=== PATIENT | male | born 1955 | race Caucasian/White ===

== ENCOUNTER 2019-08-20 18:51 | Emergency (ER) | payer MEDICARE, BC ==
[2019-08-20] MEDS ORDERED: Acetaminophen 325 MG Tab PO ONE (19:30)
[2019-08-20] MEDS ORDERED: Lidocaine 1% with EPINEPHrine 1:100,000 20 ML MDV ONE (19:40)
[2019-08-20] MEDS ORDERED: Lidocaine 1% with EPINEPHrine 1:100,000 20 ML MDV INJECT ONE (19:42)
[2019-08-20] MEDS ORDERED: Bacitracin/Neomycin/Polymyxin B Oint 0.9 GM U/D Packet ONE (19:47)
[2019-08-20] MEDS ORDERED: Bacitracin/Neomycin/Polymyxin B Oint 0.9 GM U/D Packet TOP ONE (19:49)
--- NOTE | 2019-08-20 19:58 | EDM.PDOC ---
ED HPI GENERAL MEDICAL PROBLEM - General Chief Complaint: Laceration Stated Complaint: GASH IN FOREHEAD Time Seen by Provider: 08/20/19 19:53 Source of Information: Reports: Patient History Limitations: Reports: No Limitations - History of Present Illness INITIAL COMMENTS - FREE TEXT/NARRATIVE: Patient is a 64-year-old gentleman who presents to emergency department this evening with a complaint of laceration to forehead. Patient states that he was [place] today, and accidentally struck head with a metal end of [place] cord. Patient denies any loss of consciousness, neck discomfort, or any other discomfort. Onset: Today Onset Time: 15:30 Duration: Hour(s): Location: Reports: Face Severity: Mild Improves with: Reports: None Worsens with: Reports: None Context: Reports: Trauma Associated Symptoms: Reports: No Other Symptoms Headache Pain Score (Numeric/FACES): 2 - Related Data Allergies Allergy/AdvReac Type Severity Reaction Status Date / Time saccharin Allergy Swollen Verified 08/20/19 19:10 Tongue Home Meds: Home Meds Omeprazole 40 mg PO DAILY 08/20/19 [History] Past Medical History HEENT History: Reports: Hard of Hearing, Impaired Vision Cardiovascular History: Reports: None Respiratory History: Reports: None Gastrointestinal History: Reports: None Genitourinary History: Reports: None Musculoskeletal History: Reports: None Neurological History: Reports: None Psychiatric History: Reports: None Endocrine/Metabolic History: Reports: None Hematologic History: Reports: None Immunologic History: Reports: None Oncologic (Cancer) History: Reports: None Dermatologic History: Reports: None - Past Surgical History HEENT Surgical History: Reports: None GI Surgical History: Reports: None Endocrine Surgical History: Reports: None Neurological Surgical History: Reports: None Musculoskeletal Surgical History: Reports: Carpal Tunnel Social & Family History - Tobacco Use Smoking Status *Q: Never Smoker Second Hand Smoke Exposure: Yes - Caffeine Use Caffeine Use: Reports: Soda - Recreational Drug Use Recreational Drug Use: No ED ROS GENERAL - Review of Systems Review Of Systems: Comprehensive ROS is negative, except as noted in HPI. Constitutional: Reports: No Symptoms HEENT: Reports: No Symptoms Respiratory: Reports: No Symptoms Cardiovascular: Reports: No Symptoms Endocrine: Reports: No Symptoms GI/Abdominal: Reports: No Symptoms : Reports: No Symptoms Musculoskeletal: Reports: No Symptoms Skin: Reports: Wound (Jackson a laceration to right superior forehead) Neurological: Reports: No Symptoms Psychiatric: Reports: No Symptoms Hematologic/Lymphatic: Reports: No Symptoms Immunologic: Reports: No Symptoms ED EXAM, SKIN/RASH Exam: See Below Exam Limited By: No Limitations General Appearance: Alert, WD/WN, No Apparent Distress Eye Exam: Bilateral Eye: Normal Inspection Nose: Normal Inspection, No Blood Throat/Mouth: Normal Inspection, Normal Oropharynx, No Airway Compromise Head: Atraumatic, Normocephalic Neck: Normal Inspection, Supple, Non-Tender Respiratory/Chest: No Respiratory Distress Back Exam: Normal Inspection Extremities: Normal Inspection Neurological: Alert, Oriented, CN II-XII Intact, Normal Cognition, No Motor/ Sensory Deficits Psychiatric: Normal Affect, Normal Mood Skin: Warm, Dry, Normal Color, No Rash, Wound/Incision (2 cm linear incision at the right superior forehead.) Location, Skin: Face ED SKIN PROCEDURES - Laceration/Wound Repair Right Upper Forehead Appearance: Superficial Distal NVT: Neuro & Vascular Intact Anesthetic Type: Local Local Anesthesia - Lidocaine (Xylocaine): 1% with EPI Local Anesthetic Volume: 2cc Closed with: Sutures Lac/Wound length In cm: 2 Suture Size: 4-0 # of Sutures: 5 Sterile Dressing Applied: Nurse Tetanus Status Addressed: Yes Complications: No Course - Vital Signs Last Recorded V/S: Last Vital Signs Temp 98.4 F 08/20/19 19:01 Pulse 100 08/20/19 19:01 Resp 20 08/20/19 19:01 BP 114/91 H 08/20/19 19:01 Pulse Ox 94 L 08/20/19 19:01 - Orders/Labs/Meds Meds: Medications Discontinued Medications Generic Name Dose Route Start Last Admin Trade Name Jovani PRN Reason Stop Dose Admin Acetaminophen 650 mg 08/20/19 19:30 08/20/19 19:33 Tylenol PO 08/20/19 19:31 650 mg NOW ONE Administration Lidocaine/Epinephrine Confirm 08/20/19 19:40 08/20/19 19:44 Xylocaine 1% With Epinephrine 1:100,000 Administered 08/20/19 19:41 Not Given Dose 20 ml .ROUTE .STK-MED ONE Lidocaine/Epinephrine 3 ml 08/20/19 19:42 08/20/19 19:43 Xylocaine 1% With Epinephrine 1:100,000 INJECT 08/20/19 19:43 3 ml ONETIME ONE Administration Neomycin/Polymyxin/Bacitracin 1 each 08/20/19 19:49 Triple Antibiotic Oint TOP 08/20/19 19:50 ONETIME ONE Neomycin/Polymyxin/Bacitracin Confirm 08/20/19 19:47 Triple Antibiotic Oint Administered 08/20/19 19:48 Dose 1 each .ROUTE .K-MED ONE - Re-Assessments/Exams Free Text/Narrative Re-Assessment/Exam: 08/20/19 19:56 Patient afebrile, vital signs stable, tolerated procedure well. Patient will follow-up with PCP in 7 to 10 days for suture removal. Departure - Departure Time of Disposition: 19:57 Disposition: Home, Self-Care 01 Condition: Good Clinical Impression: Facial laceration Qualifiers: Encounter type: initial encounter Qualified Code(s): S01.81XA - Laceration without foreign body of other part of head, initial encounter - Discharge Information Instructions: Laceration Care, Adult, [id number], Stitches, Jonathan, or Adhesive Wound Closure, [id number], Facial Laceration, [id number] Referrals: Mahamed Parisi PA-C [Primary Care Provider] - Additional Instructions: Follow[facility]up at [facility] 7-10 days for suture removal. Return to emergency department sooner symptoms continue or worsen. Sepsis Event Note - Evaluation Sepsis Screening Result: No Definite Risk - Focused Exam Vital Signs: Vital Signs Temp Pulse Resp BP Pulse Ox 08/20/19 19:01 98.4 F 100 20 114/91 H 94 L Date Exam was Performed: 08/20/19 Time Exam was Performed: 19:53 - Assessment/Plan Assessment:: Facial laceration repair Plan: Follow up PCP
== END 2019-08-20 20:00 | disposition home or self-care (01) ==
LOC: KA.ED 18:51
DX: S01.81XA Laceration without foreign body of other part of head, initial encounter (principal); Z88.2 Allergy status to sulfonamides; W22.8XXA Striking against or struck by other objects, initial encounter; Y93.89 Activity, other specified
CPT/HCPCS: 12011; 99282-25; 99283; A9270-GY